=== PATIENT | female | born 1970 ===

== ENCOUNTER 2018-01-11 12:14 | Emergency (ER) | payer MEDICAID ==
[2018-01-11 12:58] VITALS: BMI 31.1
[2018-01-11 13:04] VITALS: RESP 18; O2SAT 98
--- NOTE | 2018-01-11 13:05 | ED PDOC ---
Arrival/HPI - General Chief Complaint: Eye Problem Time Seen by Provider: 01/11/18 12:51 Historian: Patient - History of Present Illness Narrative History of Present Illness (Text): 01/11/18 12:58 A 47 year old female, with no significant past medical history, presents to the emergency department complaining of pain behind left eye. Patient reports pain worsens with eye movement. States she has never had this issue before. She mentions taking Motrin 800 mg, but has had no relief of symptom. Patient denies trauma, blurry/double vision, ear pain, headache, dizziness, or any other complaints at this time. PMD: Dr. Danuta Orellana Past Medical History - Provider Review Nursing Documentation Reviewed: Yes - Past Medical History Past Medical History: No Previous - Cardiac Hx Heart Murmur: Yes - Pulmonary Hx Respiratory Disorders: No - Neurological Hx Neurological Disorder: No - HEENT Hx HEENT Disorder: No - Renal Hx Renal Disorder: No - Endocrine/Metabolic Hx Endocrine Disorders: No - Hematological/Oncological Hx Blood Disorders: No - Integumentary Hx Dermatological Disorder: No - Musculoskeletal/Rheumatological Hx Musculoskeletal Disorders: No - Gastrointestinal Hx Gastrointestinal Disorders: No - Genitourinary/Gynecological Hx Genitourinary Disorders: No - Psychiatric Hx Psychophysiologic Disorder: No Hx Substance Use: No - Surgical History Hx Section: Yes Hx Tubal Ligation: Yes - Anesthesia Hx Anesthesia: Yes Hx Anesthesia Reactions: No Hx Malignant Hyperthermia: No Family/Social History - Physician Review Nursing Documentation Reviewed: Yes Family/Social History: No Known Family HX Smoking Status: Never Smoked Hx Alcohol Use: No Hx Substance Use: No Allergies/Home Meds Allergies/Adverse Reactions: Allergies No Known Allergies Allergy (Verified 07/30/12 15:45) Review of Systems - Physician Review All systems were reviewed & negative as marked: Yes - Review of Systems Constitutional: absent: Other (patient denies any trauma.) Eyes: Eye Pain (pain behind and around left eye, worsens with movement of eye.) . absent: Vision Changes (no blurry/double vision), Other (no ear pain) Neurological: absent: Headache, Dizziness Physical Exam - Physical Exam Narrative Physical Exam (Text): Gen: VS reviewed, alert, well developed, well nourished, nontoxic, mild distress. ENT: normal pharynx Eye: EOMI, PERRL, tenderness around orbit of left eye, no swelling to eyelid, no proptosis, no conjunctivitis Neck: no JVD, supple, no adenopathy CV: regular rate, regular rhythm, no rubs, no murmur, no gallops, S1, S2, pulses equal and strong Pulm: no distress, clear to auscultation, no wheeze, no rhonchi, breath sounds equal, no rales Abd: soft, nontender, no guarding, no rebound, no rigidity, normal bowel sounds Ext: no edema Skin: good color, no rash, no cyanosis Psych: responds appropriately to questions, normal affect Neuro: oriented x 3, CN2-12 intact grossly, motor intact, sensation intact Vital Signs Reviewed: Yes Vital Signs Temp Pulse Resp BP Pulse Ox 01/11/18 13:00 98.4 F 88 18 125/65 98 Temperature: Afebrile Blood Pressure: Normal Pulse: Regular Respiratory Rate: Normal Appearance: Positive for: Well-Appearing, Non-Toxic, Comfortable Pain Distress: None Mental Status: Positive for: Alert and Oriented X 3 Medical Decision Making ED Course and Treatment: 01/11/18 13:00 Impression: 47 year old female with pain behind left eye that worsens with movement. Physical exam shows tenderness around orbit of left eye, no swelling to eyelid, no proptosis, no conjunctivitis; no other acute findings on examination. Plan: -- Orbits CT -- Test UA -- Toradol -- Labs -- Reassess and disposition Progress Notes: 01/11/18 13:44 left cornea as anesthetized with tetracaine and patient reports immediate decrease in intensity of pain. there was no abnormal flurescein uptake. IOP measured in the left orbit as 15 and 14. 01/11/2018 14:[address] IMPRESSION: 1. Unremarkable bilateral orbits. No suspicious oral enhancement bilaterally. 2. Incidental extensive left frontal and bilateral ethmoid and maxillary sinusitis. Dictator: Sukhwinder Ramos MD 01/11/18 16:23 patient seen for left eye pain, Ct was done to rule out orbital cellulitis as the patient reports a lot of pain with EOM movement. patient show s/s of toxicity such as visual disturbance, fever, headache or meningismus. patient remained stable throughout ED course. patient already on augmentin for 3 days. instructed to stop afrin after three days, continue motrin for pain, can add tylenol, add fluticasone, follow up with ENT - Lab Interpretations Lab Results: 01/11/18 13:20 01/11/18 13:20 Lab Results 01/11/18 13:20: Sodium 142, Potassium 4.4, Chloride 105, Carbon Dioxide 26, Anion Gap 16, BUN 14, Creatinine 0.5 L, Est GFR ( Amer) > 60, Est GFR ( Non-Af Amer) > 60, Random Glucose 114 H, Calcium 9.4 01/11/18 13:20: WBC 11.0, RBC 4.35, Hgb 11.8 L, Hct 35.9 L, MCV 82.5, MCH 27.1, MCHC 32.9, RDW 12.9, Plt Count 413, MPV 10.2, Gran % 76.0 H, Lymph % (Auto) 16.7 L, Garfield % (Auto) 6.1 H, Eos % (Auto) 1.0 L, Baso % (Auto) 0.2, Gran # 8.36 H, Lymph # (Auto) 1.8, Garfield # (Auto) 0.7 H, Eos # (Auto) 0.1, Baso # (Auto) 0.02 I have reviewed the lab results: Yes - RAD Interpretation Radiology Orders: 01/11/18 13:01 ORBITS/ FACIALS W/ CONT [CT] Stat - Medication Orders Current Medication Orders: Discontinued Medications Ketorolac Tromethamine (Toradol) 30 mg IVP STAT STA Stop: 01/11/18 13:01 Last Admin: 01/11/18 13:20 Dose: 30 mg MAR Pain Assessment Document 01/11/18 13:20 SRE (Rec: 01/11/18 13:34 [id number]) Pain Reassessment Is this a pain reassessment? Yes Sleep Is patient sleeping during reassessment? No Presence of Pain Presence of Pain Yes Pain Scale Used Pain Scale Used Numeric Location Left, Right or Bilateral Left Pain Location Body Site Eye Description Description Intermittent IVP Administration Document 01/11/18 13:20 SRE (Rec: 01/11/18 13:34 SRE [id number]) Charges for Administration # of IVP Administrations 1 - Scribe Statement The provider has reviewed the documentation as recorded by the Chandrikaibshakila Solorio Provider Scribe Provider Scribe Attestation: All medical record entries made by the Chandrikaibshakila were at my direction and personally dictated by me. I have reviewed the chart and agree that the record accurately reflects my personal performance of the history, physical exam, medical decision making, and the department course for this patient. I have also personally directed, reviewed, and agree with the discharge instructions and disposition. Disposition/Present on Arrival - Present on Arrival Any Indicators Present on Arrival: No History of DVT/PE: No History of Uncontrolled Diabetes: No Urinary Catheter: No History of Decub. Ulcer: No History Surgical Site Infection Following: None - Disposition Have Diagnosis and Disposition been Completed?: Yes Diagnosis: Sinusitis Disposition: HOME/ ROUTINE Disposition Time: 16:26 Patient Plan: Discharge Patient Problems: Current Active Problems Problem Status Onset Sinusitis Acute Condition: STABLE Discharge Instructions (ExitCare): Sinusitis in Adults Print Language: IRISH Additional Instructions: Return for any new or worsening symptoms especially fever greater than 100.4, headaches, vision changes. Follow up with a ear,nose, throat doctor to ensure full healing. You may discuss a referral to the specialist. LORENA FINLEY, thank you for letting us take care of you today. Your provider was Dr. Fidel Love and you were treated for sinusitis. The emergency medical care you received today was directed at your acute symptoms. If you were prescribed any medication, please fill it and take as directed. It may take several days for your symptoms to resolve. Return to the Emergency Department if your symptoms worsen, do not improve, or if you have any other problems. Please contact your doctor or call one of the physicians/clinics you have been referred to that are listed on the Patient Visit Information form that is included in your discharge packet. Bring any paperwork you were given at discharge with you along with any medications you are taking to your follow up visit. Our treatment cannot replace ongoing medical care by a primary care provider outside of the emergency department. Thank you for allowing the [facility] team to be part of your care today. If you had an X-Ray or CT scan: A Radiologist will review the ED reading if any change in treatment is needed we will contact you. If you had a blood, urine, or wound culture: It will take several days for the results, if any change in treatment is needed we will contact you. If you had an STI test: It will take 48 hours for the results. Please call after 1 week if you have not heard back. Prescriptions: Fluticasone Propionate [Flonase] 1 spr NS DAILY #1 bot Referrals: Danuta Orellana MD [Primary Care Provider] - Follow up with primary Kirill Campbell DO [Staff Provider] - Follow up with primary Forms: [facility] (Croatian), WORK NOTE
[2018-01-11 13:41] LABS: BASO # 0.02 K/mm3 (0.0-2.0); BASO % 0.2 % (0.0-3.0); EOS # 0.1 (0.0-0.7); GRAN # 8.36 (1.4-6.5); HEMOGLOBIN 11.8 g/dL (12.0-16.0); LYMPH # 1.8 (1.2-3.4); LYMPH % 16.7 % (22.0-35.0); MEAN CELL VOLUME 82.5 fl (80.0-105.0); MEAN CORPUSCULAR HEMOGLOBIN 27.1 pg (25.0-35.0); MEAN CORPUSCULAR HGB CONC 32.9 g/dl (31.0-37.0); MEAN PLATELET VOLUME 10.2 fl (7.0-11.0); MONO # 0.7 (0.1-0.6); MONO % 6.1 % (1.0-6.0); RBC 4.35 10^6/uL (3.5-6.1); RED CELL DISTRIBUTION WIDTH 12.9 % (11.5-14.5)
[2018-01-11] MEDS ORDERED: Iohexol 350 MG/100 ML VIAL ONE (13:41)
[2018-01-11 14:00] LABS: BLOOD UREA NITROGEN 14 mg/dL (7-21); CALCIUM 9.4 mg/dL (8.4-10.5); GFR NON-AFRICAN AMERICAN > 60
--- NOTE | 2018-01-11 14:32 | CT ---
Date of service: 01/11/2018 PROCEDURE: CT ORBITS WITH CONTRAST. HISTORY: left eye pain, rule out orbital cellulitis COMPARISON: None available. TECHNIQUE: Following administration of intravenous iodinated contrast, axial CT images of the orbits were obtained. Coronal and sagittal reformats were generated. Intravenous contrast dose: OMNIPAQUE 350, 100 CC Radiation dose: Total exam DLP = 692.44 mGy-cm. This CT exam was performed using one or more of the following dose reduction techniques: Automated exposure control, adjustment of the mA and/or kV according to patient size, and/or use of iterative reconstruction technique. FINDINGS: RIGHT ORBIT: RIGHT BONY ORBIT: Normal. RIGHT INTRAORBITAL STRUCTURES: Globe: Normal. Extraocular muscles: Normal. Post septal space: Normal. Optic Nerve: Normal. Lacrimal Apparatus: Normal. RIGHT PRESEPTAL SOFT TISSUES: Normal. LEFT ORBIT: LEFT BONY ORBIT: Normal. LEFT INTRAORBITAL STRUCTURES: Globe: Normal. Extraocular muscles: Normal. Post septal space: Normal. Optic Nerve: Normal. Lacrimal Apparatus: Normal. LEFT PRESEPTAL SOFT TISSUES: Normal. OTHER: Incidental left maxillary and frontal sinusitis may be the cause of patient's left orbital discomfort. There is also extensive bilateral ethmoid sinusitis and right maxillary sinusitis. IMPRESSION: 1. Unremarkable bilateral orbits. No suspicious oral enhancement bilaterally. 2. Incidental extensive left frontal and bilateral ethmoid and maxillary sinusitis.
[2018-01-11 16:34] VITALS: BP 106/74; PULSE 82; TEMP 98
== END 2018-01-11 16:36 | disposition home or self-care (01) ==
LOC: ED 12:14
DX: J32.9 Chronic sinusitis, unspecified (principal)
CPT/HCPCS: 70481; 80048; 85025; 96374; 99284; J1885; Q9967